=== PATIENT | female | born 1970 | race Caucasian/White ===

== ENCOUNTER → 2017-01-24 | Outpatient (CLI) | payer BC, OTHER | LOC: M SMT 13:47 | PROVIDERS: ATTEND Student in an Organized Health Care Education/Training Program | DX: R73.03 Prediabetes (principal) ==

== ENCOUNTER → 2017-08-09 | Outpatient (CLI) | payer OTHER, BC ==
[2017-08-09 19:05] LABS: BASO % 0.3 % (0.0-1.0); EOS # 0.1 K/mm3 (0.0-0.50); EOS % 0.9 % (0.0-3.0); LARGE UNSTAINED CELL # 0.1 K/mm3 (0.0-0.4); LARGE UNSTAINED CELL % 1.5 % (0.0-4.0); LYMPH # 0.9 K/mm3 (1.5-4.5); LYMPH % 13.2 % (24.0-44.0); MEAN CORPUSCULAR HEMOGLOBIN 31.7 pg (27.0-33.0); MEAN CORPUSCULAR HGB CONC 35.3 g/dl (32.0-36.5); MEAN CORPUSCULAR VOLUME 89.9 fl (80.0-96.0); MONO # 0.4 K/mm3 (0.0-0.8); NEUTROPHILS # 5.6 K/mm3 (1.8-7.7); NEUTROPHILS % 79.1 % (36.0-66.0); PLATELET COUNT, AUTOMATED 243 k/mm3 (150-450); RED CELL DISTRIBUTION WIDTH 12.4 % (11.5-14.5); WHITE BLOOD COUNT 7.1 K/mm3 (4.0-10.0)
[2017-08-09 20:23] LABS: ALBUMIN 4.5 GM/DL (3.2-5.2); ALBUMIN/GLOBULIN RATIO 1.32 (1.00-1.93); ALKALINE PHOSPHATASE 79 U/L (45-117); ALT/SGPT 53 U/L (12-78); ANION GAP 9 MEQ/L (8-16); AST/SGOT 31 U/L (15-37); BILIRUBIN,TOTAL 0.6 MG/DL (0.2-1.0); BLOOD UREA NITROGEN 14 MG/DL (7-18); CALCIUM LEVEL 9.4 MG/DL (8.5-10.1); CARBON DIOXIDE LEVEL 28 MEQ/L (21-32); CHLORIDE LEVEL 103 MEQ/L (98-107); CREATININE FOR GFR 0.84 MG/DL (0.55-1.02); GLOMERULAR FILTRATION RATE > 60.0 (>58); GLUCOSE, FASTING 90 MG/DL (70-105); POTASSIUM SERUM 3.8 MEQ/L (3.5-5.1); SODIUM LEVEL 140 MEQ/L (136-145); TOTAL PROTEIN 7.9 GM/DL (6.4-8.2)
[2017-08-12 00:06] LABS: Lyme Disease IgG/IgM Antibodie <0.91 ISR (0.00-0.90); Lyme Disease IgM Ab Quantitati <0.80 index (0.00-0.79)
== END ==
LOC: M SMT 13:36
PROVIDERS: ATTEND Student in an Organized Health Care Education/Training Program
DX: Z00.00 Encounter for general adult medical examination without abnormal findings (principal); R21 Rash and other nonspecific skin eruption

== ENCOUNTER → 2017-09-06 | Outpatient (CLI) | payer BC, OTHER ==
--- NOTE | 2017-09-06 14:04 | REP ---
DIGITAL DIAGNOSTIC BILATERAL MAMMOGRAPHY WITH CAD AND FOCUSED RIGHT BREAST SONOGRAPHY: HISTORY: Right breast lump. The lump is nearly up at the shoulder and could not be displayed on mammographic images. Comparison mammography is reviewed from September 05, 2016, May 05, 2014, and September 08, 2013. MAMMOGRAPHIC FINDINGS: Breast parenchyma is heterogeneously quite dense in a pattern which inhibits the sensitivity of mammography. This is unchanged. No neodensity is seen on either side. No spiculation, architectural distortion, or microcalcification is seen on either side. The mammogram is unchanged. Normal appearing lymph nodes are seen in each axilla. SONOGRAPHIC FINDINGS: Sonographic scanning is performed over the palpable lump in the left upper anterior chest above the breast. The patient gives a history of two stable previously noted lumps and a new third lump. This area is tender. Sonography again demonstrates two superficial stable subdermal cystic areas. These measure 4 and 2 mm in greatest diameter respectively. They are unchanged from the September 05, 2016 prior sonogram. They are also unchanged in appearance from sonography done in 2013. In the same region, today's sonography demonstrates a slightly hyperechoic area consistent with a lipoma 4 mm x 3 mm x 2 mm. This appears to be in the new area of palpable abnormality. No sonographically suspicious finding. IMPRESSION: BIRADS category 2 benign bilateral breast imaging. Clinical follow-up is recommended. This negative report should not dissuade one from biopsy of a palpable lump depending on its clinical characteristics. BI-RADS/ACR category 2 mammogram. Benign finding(s). Routine annual screening mammography (for women over age 40). This mammogram was interpreted with the aid of an FDA-approved computer-aided detection system. The patient states that she/he has not had a clinical breast exam in over a year. The patient letter being requested is M2. Signed by Nirmal Funez MD 09/06/2017 05:11 P
== END ==
LOC: M RAD 09:57
PROVIDERS: ATTEND Family Medicine
DX: N60.81 Other benign mammary dysplasias of right breast (principal)
CPT/HCPCS: 76642; G0204

== ENCOUNTER → 2017-12-26 | Outpatient (REF) | payer OTHER ==
[2017-12-26 15:59] LABS: APPEARANCE, URINE CLEAR (CLEAR); BACTERIA, URINE AUTO 1+ (NEGATIVE); BILIRUBIN, URINE AUTO NEGATIVE (NEGATIVE); BLOOD, URINE BLOOD NEGATIVE (NEGATIVE); COLOR, URINE STRAW (YELLOW); GLUCOSE, URINE (UA) AUTO NEGATIVE (NEGATIVE); KETONE, URINE AUTO NEGATIVE (NEGATIVE); LEUKOCYTE ESTERASE, URINE AUTO NEGATIVE (NEGATIVE); NITRITE, URINE AUTO NEGATIVE (NEGATIVE); PROTEIN, URINE AUTO NEGATIVE (NEGATIVE); RBC, URINE AUTO 0 /HPF (0-3); SPECIFIC GRAVITY URINE AUTO 1.004 (1.002-1.035); SQUAMOUS EPITHELIAL CELL UR AU 0 /HPF (0-6); UROBILINOGEN, URINE AUTO 0.2 mg/dL (0.0-2.0); WBC, URINE AUTO 0 /HPF (0-3)
== END ==
LOC: M SFHCPLAZ 15:39
DX: R63.1 Polydipsia (principal)

== ENCOUNTER → 2017-12-28 | Outpatient (CLI) | payer BC, OTHER ==
[2017-12-28 13:47] LABS: BASO % 0.3 % (0.0-1.0); EOS # 0.1 10^3/uL (0.0-0.50); EOS % 0.7 % (0.0-3.0); HEMATOCRIT 41.4 % (36.0-47.0); HEMOGLOBIN 13.7 g/dl (12.0-16.0); IMMATURE GRANULOCYTE % 0.4 % (0-0); LYMPH # 0.8 10^3/uL (1.5-4.5); LYMPH % 10.4 % (24.0-44.0); MEAN CORPUSCULAR HEMOGLOBIN 30.6 pg (27.0-33.0); MEAN CORPUSCULAR HGB CONC 33.1 g/dl (32.0-36.5); MEAN CORPUSCULAR VOLUME 92.6 fl (80.0-96.0); MONO # 0.4 10^3/uL (0.0-0.8); MONO % 5.7 % (0.0-5.0); NEUTROPHILS # 6.1 10^3/uL (1.8-7.7); NEUTROPHILS % 82.5 % (36.0-66.0); PLATELET COUNT, AUTOMATED 235 10^3/uL (150-450); RED BLOOD COUNT 4.47 10^6/uL (4.00-5.40); RED CELL DISTRIBUTION WIDTH 12.3 % (11.5-14.5); WHITE BLOOD COUNT 7.4 10^3/uL (4.0-10.0)
[2017-12-28 14:08] LABS: ERYTHROCYTE SEDIMENTATION RATE 20 mm/hr (0-20)
[2017-12-28 14:17] LABS: ANION GAP 7 MEQ/L (8-16); BLOOD UREA NITROGEN 14 MG/DL (7-18); C REACTIVE PROTEIN QUANTITATIV 0.83 MG/DL (0.00-0.30); CALCIUM LEVEL 8.8 MG/DL (8.5-10.1); CARBON DIOXIDE LEVEL 27 MEQ/L (21-32); CHLORIDE LEVEL 105 MEQ/L (98-107); CREATININE FOR GFR 0.73 MG/DL (0.55-1.30); GLOMERULAR FILTRATION RATE > 60.0 (>58); GLUCOSE, FASTING 101 MG/DL (70-100); POTASSIUM SERUM 4.5 MEQ/L (3.5-5.1); RHEUMATOID FACTOR QUANT < 10.0 IU/ML (0-15.0); SODIUM LEVEL 139 MEQ/L (136-145)
[2017-12-28 15:13] LABS: TOTAL 25(OH) VITAMIN D 26.2 NG/ML (30.0-100.0)
[2017-12-30 00:07] LABS: Lyme Disease IgG/IgM Antibodie <0.91 ISR (0.00-0.90); Lyme Disease IgM Ab Quantitati <0.80 index (0.00-0.79)
== END ==
LOC: M SMT 09:10
DX: R53.83 Other fatigue (principal); M79.1 Myalgia
CPT/HCPCS: 82306

== ENCOUNTER → 2018-01-08 | Outpatient (REF) | payer OTHER ==
[2018-01-10 14:17] LABS: HPV HYBRID CAPTURE II Negative (Negative)
== END ==
LOC: M SFHCWAGY 10:24
DX: Z12.4 Encounter for screening for malignant neoplasm of cervix (principal)
CPT/HCPCS: G0123

== ENCOUNTER → 2018-01-15 | Outpatient (CLI) | payer BC, OTHER ==
[2018-01-15 16:49] LABS: CARBOXYHEMOGLOBIN 1.8 % (0.0-1.5)
[2018-01-15 17:54] LABS: ANION GAP 9 MEQ/L (8-16); BLOOD UREA NITROGEN 17 MG/DL (7-18); CALCIUM LEVEL 8.7 MG/DL (8.5-10.1); CARBON DIOXIDE LEVEL 24 MEQ/L (21-32); CHLORIDE LEVEL 107 MEQ/L (98-107); CREATININE FOR GFR 0.85 MG/DL (0.55-1.30); GLOMERULAR FILTRATION RATE > 60.0 (>58); GLUCOSE, FASTING 208 MG/DL (70-100); POTASSIUM SERUM 4.3 MEQ/L (3.5-5.1); SODIUM LEVEL 140 MEQ/L (136-145); THYROID STIMULATING HORMONE 0.695 uIU/ML (0.358-3.740)
[2018-01-15 18:00] LABS: ESTIMATED AVERAGE GLUCOSE 103 MG/DL (60-110); HEMOGLOBIN A1c 5.2 %
== END ==
LOC: M SMT 14:13
DX: R53.83 Other fatigue (principal)
CPT/HCPCS: 84443

== ENCOUNTER → 2018-08-08 | Outpatient (REF) | payer OTHER ==
[2018-08-08 18:08] LABS: CHLAMYDIA DNA AMPLIFICATION NEGATIVE (NEGATIVE); GC DNA AMPLIFICATION NEGATIVE (NEGATIVE)
== END ==
LOC: M SFHCWAGY 15:48
DX: Z11.3 Encounter for screening for infections with a predominantly sexual mode of transmission (principal)

== ENCOUNTER → 2018-08-14 | Outpatient (REF) | payer OTHER ==
[2018-08-15 15:51] LABS: CHLAMYDIA DNA AMPLIFICATION NEGATIVE (NEGATIVE); GC DNA AMPLIFICATION NEGATIVE (NEGATIVE)
== END ==
LOC: M LAB REF 12:48
DX: N76.0 Acute vaginitis (principal)

== ENCOUNTER → 2019-01-08 | Outpatient (REF) | payer OTHER, BC | LOC: M SFHCPLAZ 11:19 | PROVIDERS: ATTEND Student in an Organized Health Care Education/Training Program | DX: R68.89 Other general symptoms and signs (principal) ==

== ENCOUNTER → 2019-02-19 | Outpatient (CLI) | payer BC ==
--- NOTE | 2019-02-19 13:51 | REPMRS ---
Patient History The patient states she had a clinical breast exam in January 2019. Family history of prostate cancer at age 50 or over in father, unknown cancer at age 50 or over in mother, unknown cancer at age 50 or over in maternal grandmother. 3D TOMOSYNTHESIS WAS PERFORMED. Digital Mammo Screening Bilat: February 19, 2019 - Exam #: [id number] Bilateral CC and MLO view(s) were taken. Technologist: Stephanie Doss, Technologist Prior study comparison: September 06, 2017, digital mammo diagnostic bilateral performed at [facility]. September 05, 2016, digital mammo diagnostic bilateral performed at [facility]. FINDINGS: The breast tissue is heterogeneously dense. This may lower the sensitivity of mammography. There has been no change in the appearance of the mammogram from the prior studies. There is a moderate amount of residual fibroglandular tissue which is fairly symmetric. There is no interval development of dominant mass, areas of architectural distortion, or clustered microcalcification typical of malignancy. Assessment: BI-RADS/ACR category 1 mammogram. Negative Mammogram. Recommendation Routine screening mammogram in 1 year (for women over age 40). This mammogram was interpreted with the aid of an FDA-approved computer-aided dectection system. Electronically Signed By: Tristin Harper MD 02/19/19 [id number]
== END ==
LOC: M RAD 11:30
PROVIDERS: ATTEND Nurse Practitioner Family
DX: Z12.31 Encounter for screening mammogram for malignant neoplasm of breast (principal); Z80.9 Family history of malignant neoplasm, unspecified

== ENCOUNTER → 2019-12-17 | Outpatient (CLI) | payer OTHER ==
[2019-12-17 11:02] LABS: HEMATOCRIT 43.9 % (36.0-47.0); HEMOGLOBIN 14.5 g/dl (12.0-15.5); MEAN CORPUSCULAR HEMOGLOBIN 29.9 pg (27.0-33.0); MEAN CORPUSCULAR VOLUME 90.5 fl (80.0-96.0); PLATELET COUNT, AUTOMATED 200 10^3/uL (150-450); RED BLOOD COUNT 4.85 10^6/uL (4.00-5.40); WHITE BLOOD COUNT 7.9 10^3/uL (4.0-10.0)
[2019-12-17 11:35] LABS: ERYTHROCYTE SEDIMENTATION RATE 9 mm/hr (0-20)
[2019-12-17 11:50] LABS: ALBUMIN 4.2 GM/DL (3.2-5.2); ALT/SGPT 33 U/L (12-78); BILIRUBIN,TOTAL 0.6 MG/DL (0.2-1.0); BLOOD UREA NITROGEN 13 MG/DL (7-18); C REACTIVE PROTEIN QUANTITATIV 0.37 MG/DL (0.00-0.30); CALCIUM LEVEL 9.2 MG/DL (8.5-10.1); CARBON DIOXIDE LEVEL 29 MEQ/L (21-32); CHLORIDE LEVEL 104 MEQ/L (98-107); CHOLESTEROL LEVEL 204 MG/DL (<200); CHOLESTEROL RISK RATIO 3.923 (<5); CREATININE FOR GFR 0.79 MG/DL (0.55-1.30); GLOMERULAR FILTRATION RATE > 60.0 (>58); GLUCOSE, FASTING 97 MG/DL (70-100); HDL CHOLESTEROL 52 MG/DL (>40); LDL CHOLESTEROL 111 MG/DL (<100); NON-HDL-C 152 MG/DL; POTASSIUM SERUM 4.5 MEQ/L (3.5-5.1); SODIUM LEVEL 141 MEQ/L (136-145); TOTAL PROTEIN 7.6 GM/DL (6.4-8.2); TRIGLYCERIDES LEVEL 203 MG/DL (<150)
== END ==
LOC: M PLALAB 08:07
PROVIDERS: ATTEND Family Medicine
DX: Z00.00 Encounter for general adult medical examination without abnormal findings (principal); Z13.1 Encounter for screening for diabetes mellitus; Z13.220 Encounter for screening for lipoid disorders; M25.511 Pain in right shoulder; M25.512 Pain in left shoulder

== ENCOUNTER → 2020-02-19 | Outpatient (REF) | payer OTHER | LOC: M LAB REF 18:56 | PROVIDERS: ATTEND Physician Assistant | DX: N39.0 Urinary tract infection, site not specified (principal) ==

== ENCOUNTER → 2020-04-05 | Outpatient (CLI) | payer OTHER ==
[~2020-04-05] MED LIST: ADV250INH INH; ALPR0.5T3 PO; CETI10CH PO; DITR1TAB PO; HYDR-3363 PO; PENT10CA PO; PHEN-594 PO; REST0.05 OU; SENN8.6T58 PO; SING10TA32 PO; VENTAER INH
== END ==
LOC: M LABSMTC 10:08
PROVIDERS: ATTEND Anesthesiology
DX: Z01.818 Encounter for other preprocedural examination (principal); Z11.59 Encounter for screening for other viral diseases
CPT/HCPCS: C9803; U0002

== ENCOUNTER 2020-04-07 09:35 | Day surgery (SDC) | payer BC ==
[~2020-04-07] VITALS: Ht 160 cm; Wt 70.3 kg
[~2020-04-07 09:35] MED LIST changes: +NS 1,000 ML IV ONE; -PHEN-594 PO; +PHEN1TAB74 PO
[2020-04-07] MEDS ORDERED: propofoL 200 MG/20 ML VIAL As Ordered ONE ×2 (10:39→10:42)
[2020-04-07] MEDS ORDERED: LIDOCAINE 2% 100MG/5ML SDV (FOR ANES.) As Ordered ONE (10:39)
--- NOTE | 2020-04-07 10:59 | ROOR ---
Patient Name: Ayah Mora Procedure Date: 04/07/2020 10:39 AM Date of : 1970 Age: 50 Room: [facility] Gender: Female Note Status: Finalized Procedure: Total Colonoscopy to Cecum Indications: Screening for colorectal malignant neoplasm Providers: John Starks MD Referring MD: Salty Looney Do Requesting Provider: Medicines: Monitored Anesthesia Care Complications: No immediate complications. Procedure: Pre-Anesthesia Assessment: - The heart rate, respiratory rate, oxygen saturations, blood pressure, adequacy of pulmonary ventilation, and response to care were monitored throughout the procedure. The Colonoscope was introduced through the anus and advanced to the cecum, identified by appendiceal orifice and ileocecal valve. The colonoscopy was performed without difficulty. The patient tolerated the procedure well. The quality of the bowel preparation was excellent. Findings: The perianal and digital rectal examinations were normal. Non-bleeding internal hemorrhoids were found during retroflexion. The hemorrhoids were small and Grade I (internal hemorrhoids that do not prolapse). No other significant abnormalities were identified in a careful examination of the remainder of the colon. The exam was otherwise without abnormality on direct and retroflexion views. Impression: - Non-bleeding internal hemorrhoids. - The examination was otherwise normal on direct and retroflexion views. - No specimens collected. - The exam was otherwise normal to the cecum. Recommendation: - Patient has a contact number available for emergencies. The signs and symptoms of potential delayed complications were discussed with the patient. Return to normal activities tomorrow. Written discharge instructions were provided to the patient. - High fiber diet. - Discharge patient to home. - Continue present medications. - Repeat colonoscopy in 10 years for screening purposes. - Return to referring physician. - The findings and recommendations were discussed with the patient's family. John Starks MD John Starks MD 04/07/2020 10:58:45 AM Electronically signed by John Starks MD Number of Addenda: 0 Note Initiated On: 04/07/2020 10:39 AM Estimated Blood Loss: Estimated blood loss: none.
[2020-04-07 11:15] VITALS: BP 142/87
== END 2020-04-07 11:32 | disposition home or self-care (01) ==
LOC: M OPP 09:35
PROVIDERS: ATTEND Internal Medicine Gastroenterology
DX: Z12.11 Encounter for screening for malignant neoplasm of colon (principal); K64.0 First degree hemorrhoids; K21.9 Gastro-esophageal reflux disease without esophagitis; Z79.899 Other long term (current) drug therapy

== ENCOUNTER → 2020-06-08 | Outpatient (REF) | payer BC ==
[~2020-06-08] MED LIST changes: -NS 1,000 ML IV ONE; +PHEN-594 PO; -PHEN1TAB74 PO
== END ==
LOC: M SFHCPLAZ 15:33
PROVIDERS: ATTEND Family Medicine
DX: Z53.9 Procedure and treatment not carried out, unspecified reason (principal); G58.7 Mononeuritis multiplex

== ENCOUNTER → 2020-06-10 | Outpatient (CLI) | payer BC ==
--- NOTE | 2020-06-10 16:49 | REPPI ---
LUMBOSACRAL SPINE: REASON: Back pain with "feet tickling." Seven views were obtained with flexion and extension bending views. FINDINGS: Five views of the lumbosacral spine show no acute fracture, dislocation, or subluxation. The intervertebral disc spaces are symmetric and well maintained. There is no spondylolisthesis. The pedicles are intact bilaterally, and there is no destructive osseous lesions. IMPRESSION: Unremarkable lumbosacral spine series. No abnormality noted during flexion and extension bending. Electronically Signed by Rupesh Traore DO 06/10/2020 05:02 P
== END ==
LOC: M PLAIMG 13:35
PROVIDERS: ATTEND Student in an Organized Health Care Education/Training Program
DX: G58.7 Mononeuritis multiplex (principal)

== ENCOUNTER → 2020-06-10 | Outpatient (REF) | payer BC ==
[2020-06-10 20:24] LABS: HEMOGLOBIN A1c 5.6 %
[2020-06-14 15:08] LABS: ANTINUCLEAR ANTIBODIES DIRECT Negative (Negative); LEAD BLOOD ADULT 1 ug/dL (0-4); Lyme Disease IgG/IgM Antibodie <0.91 ISR (0.00-0.90); Lyme Disease IgM Ab Quantitati <0.80 index (0.00-0.79)
== END ==
LOC: M SFHCPLAZ 13:36
PROVIDERS: ATTEND Family Medicine
DX: M79.2 Neuralgia and neuritis, unspecified (principal)

== ENCOUNTER → 2020-08-28 | Outpatient (CLI) | payer BC ==
--- NOTE | 2020-08-31 12:18 | REPVR ---
PROCEDURE INFORMATION: Exam: XR Chest, 2 Views Exam date and time: 08/28/2020 3:00 PM Age: 50 years old Clinical indication: Chest pain; Additional info: Acute bronchitis TECHNIQUE: Imaging protocol: XR of the chest Views: 2 views. COMPARISON: No relevant prior studies available. FINDINGS: Lungs: Emphysematous change and interstitial prominence. No focal infiltrate. Pleural space: No pleural effusion. Heart/Mediastinum: No cardiomegaly. Bones/joints: Pectus excavatum deformity of the anterior chest wall. Mild compression deformities and degenerative change in the thoracic spine. IMPRESSION: Emphysematous change and interstitial prominence. Electronically signed by: Lalit Alcantar On 08/29/2020 08:57:56 AM
== END ==
LOC: M WUC 14:37
PROVIDERS: ATTEND Physician Assistant
DX: J20.9 Acute bronchitis, unspecified (principal); J43.9 Emphysema, unspecified; M51.34 Other intervertebral disc degeneration, thoracic region

== ENCOUNTER → 2020-09-06 | Outpatient (REF) | payer BC | LOC: M SFHCPLAZ 16:46 | PROVIDERS: ATTEND Family Medicine | DX: Z20.828 Contact with and (suspected) exposure to other viral communicable diseases (principal) ==

== ENCOUNTER → 2020-10-18 | Outpatient (CLI) | payer SELFPAY | LOC: M LABSMTC 11:11 | PROVIDERS: ATTEND Pediatrics | DX: Z20.828 Contact with and (suspected) exposure to other viral communicable diseases (principal) ==

== ENCOUNTER → 2021-03-10 | Outpatient (CLI) | payer OTHER ==
[~2021-03-10] MED LIST changes: -PHEN-594 PO; +PHEN1TAB74 PO
--- NOTE | 2021-03-11 06:33 | REPPI ---
INDICATION: SEPSIS,UNSPECIFIED ORGANISM COMPARISON: 08/28/2020 TECHNIQUE: PA and lateral. FINDINGS: The mediastinum and cardiac silhouette are normal. Lateral view best demonstrates scattered linear lower lobe atelectasis. No effusion. No pneumothorax. Skeletal structures intact. IMPRESSION: Lateral view best demonstrates scattered linear lower lobe atelectasis. <Electronically signed by Desean Ann > 03/11/21 0629
== END ==
LOC: M PLAIMG 13:44
PROVIDERS: ATTEND Physician Assistant
DX: J98.11 Atelectasis (principal); A41.9 Sepsis, unspecified organism

== ENCOUNTER → 2021-04-12 | Outpatient (CLI) | payer OTHER ==
--- NOTE | 2021-04-13 04:53 | REP ---
INDICATION: ASTHMA COMPARISON: No prior chest CT for comparison. TECHNIQUE: Axial noncontrast images from the thoracic inlet to the upper abdomen with coronal and sagittal reformations. This CT examination was performed using the following dose reduction techniques: Automated exposure control, adjustment of mA and/or kv according to the patient's size, and use of iterative reconstruction technique. FINDINGS: There is a 1 cm soft tissue nodule in the lingula (image 64). Few scattered small 2-3 mm noncalcified nodules are also identified as well as very subtle small patchy areas of airspace disease. Bibasilar fibroatelectatic changes are also identified and there is a somewhat nodular component to the linear changes in the right lower lobe (image 75). Tracheobronchial tree is patent. No effusion. No pneumothorax. No obvious significant adenopathy. Mediastinum demonstrates normal thoracic aorta, pulmonary vasculature, and heart/pericardium. Limited upper abdomen demonstrates normal bilateral adrenal glands. Surrounding musculoskeletal structures without acute osseous abnormality. Evidence for prior mammoplasty. IMPRESSION: Abnormal findings as described above including 1 cm soft tissue nodule in the lingula and somewhat nodular focus in an area of linear scarring at the right base. PET-CT and/or tissue sampling should be considered for further investigation. <Electronically signed by Desean Ann > 04/13/21 1134
== END ==
LOC: M RAD 14:15
PROVIDERS: ATTEND Nurse Practitioner Family
DX: J45.40 Moderate persistent asthma, uncomplicated (principal); R91.1 Solitary pulmonary nodule

== ENCOUNTER → 2021-05-31 | Outpatient (CLI) | payer OTHER ==
--- NOTE | 2021-06-01 08:23 | REP ---
INDICATION: DIAGNOSING LUNG NODULE R91.1. Solitary pulmonary nodule. This knee a period cough. COMPARISON: Comparison chest CT study April 12, 2021.. TECHNIQUE: Forty-five minutes following the intravenous injection of a 8.77 mCi dose of F-18 FDG, three-dimensional PET scintigraphy is acquired from the skull base to the proximal thighs. Triplanar noncontrast CT scanning is acquired through the same anatomic range for attenuation correction, and image registration with scan parameters optimized to minimize radiation exposure to the patient. PET scintigraphy and CT datasets were fused and displayed on a workstation with multiplanar and projection display capability. FINDINGS: The head and neck soft tissues are unremarkable. Bilateral breast augmentation implants are noted. No abnormal hypermetabolic uptake is seen within the abdomen or pelvis. No abnormal skeletal uptake is seen. In the chest, today's CT images demonstrate new zones of bilateral discoid atelectasis in the right lower lobe, left lower lobe, right middle lobe. These were not apparent on the chest CT study from April 12, 2021. There is minimal uptake associated with the atelectatic changes. Maximum SUV value in the discoid atelectasis in the right middle lobe is 3.74. Maximum SUV value in the left lower lobe atelectatic changes in the posterior lung gutter is 4.06. The other zones of platelike atelectasis show less avid uptake, less than 2.0. The lingular nodule seen on recent CT study is again noted. This measured 1 cm in greatest diameter. There is no discernible FDG accumulation within this nodule. Maximum standard uptake value is 0.81. Similarly, the oval-shaped nodule in the right lower lobe which measures 1.2 cm in greatest diameter also shows no evidence of hypermetabolic uptake. Maximum. Standard uptake value in this nodule is 1.96. There is a tiny subcentimeter nodule visible in the left upper lobe unchanged from April 12, 2021 CT study. No discernible FDG accumulation is seen within this. There is no hilar or mediastinal hypermetabolic lars uptake. No adrenal abnormality is seen. IMPRESSION: The 3 noncalcified pulmonary nodules identified in the left upper lobe, lingula, and right lower lobe on recent CT study are non hypermetabolic. Follow-up is advised. Today's CT study demonstrates new bilateral zones of platelike atelectasis in the right middle lobe, left lower lobe, and right lower lobe which show mildly increased uptake consistent with inflammatory change. Otherwise negative PET scintigraphy. <Electronically signed by Beto Funez > 06/01/21 0809
== END ==
LOC: M PLARAD 11:02
PROVIDERS: ATTEND Internal Medicine Pulmonary Disease
DX: R91.1 Solitary pulmonary nodule (principal); R91.8 Other nonspecific abnormal finding of lung field; J98.11 Atelectasis; R06.00 Dyspnea, unspecified; R05 Cough
CPT/HCPCS: 78815; A9552

== ENCOUNTER → 2021-06-07 | Outpatient (REF) | payer OTHER ==
[2021-06-07 13:41] LABS: BASO % 0.4 % (0.0-1.0); EOS # 0.1 10^3/uL (0.0-0.5); EOS % 0.7 % (0.0-3.0); HEMATOCRIT 43.7 % (36.0-47.0); HEMOGLOBIN 14.2 g/dl (12.0-15.5); LYMPH # 0.9 10^3/uL (1.5-5.0); LYMPH % 13.8 % (24.0-44.0); MEAN CORPUSCULAR HEMOGLOBIN 29.3 pg (27.0-33.0); MEAN CORPUSCULAR HGB CONC 32.5 g/dl (32.0-36.5); MEAN CORPUSCULAR VOLUME 90.1 fl (80.0-96.0); MONO # 0.4 10^3/uL (0.0-0.8); MONO % 6.5 % (2.0-8.0); NEUTROPHILS # 5.3 10^3/uL (1.5-8.5); NEUTROPHILS % 78.2 % (36.0-66.0); PLATELET COUNT, AUTOMATED 229 10^3/uL (150-450); RED BLOOD COUNT 4.85 10^6/uL (4.00-5.40); WHITE BLOOD COUNT 6.7 10^3/uL (4.0-10.0)
[2021-06-10 06:08] LABS: D001-IgE D pteronyssinus 5.25 kU/L (Class IV); E001-IgE Cat Epith/Dander 2.22 kU/L (Class III); E005-IgE Dog Dander 1.79 kU/L (Class III); G002-IgE Bermuda Grass 0.42 kU/L (Class I); G008-IgE Kentucky Bluegrass 3.49 kU/L (Class III); M001-IgE Penicillium chrysogen 0.11 kU/L (Class 0/I); M002 IgE Cladosporium herbaru < 0.10 kU/L (Class 0); M003 IgE Aspergillus fumigatu 1.02 kU/L (Class II); M006-IgE Alternaria alternata 0.76 kU/L (Class II); T001-IgE Maple/Box Elder 0.12 kU/L (Class 0/I); T003-IgE Common Silver Birch < 0.10 kU/L (Class 0); T006-IgE Cedar, Mountain < 0.10 kU/L (Class 0); T007-IgE Oak, White < 0.10 kU/L (Class 0); T008-IgE Elm, American < 0.10 kU/L (Class 0); T015-IgE Ash, White < 0.10 kU/L (Class 0); T041-IgE Hickory, White < 0.10 kU/L (Class 0); T070-IgE White Mulberry < 0.10 kU/L (Class 0); W001-IgE Ragweed, Short 0.54 kU/L (Class I); W009-IgE Plantain, English < 0.10 kU/L (Class 0); W014-IgE Pigweed, Rough < 0.10 kU/L (Class 0); W018-IgE Sheep Sorrel < 0.10 kU/L (Class 0)
== END ==
LOC: M LAB REF 12:55
PROVIDERS: ATTEND Nurse Practitioner Family
DX: J45.40 Moderate persistent asthma, uncomplicated (principal)

== ENCOUNTER 2021-07-27 04:13 | Inpatient (IN) | payer OTHER ==
[~2021-07-27] VITALS: Ht 160 cm; Wt 83.0 kg
[2021-07-27 05:23] LABS: BASO % 0.2 % (0.0-1.0); EOS % 0.1 % (0.0-3.0); HEMATOCRIT 38.7 % (36.0-47.0); HEMOGLOBIN 13.2 g/dl (12.0-15.5); LYMPH # 0.9 10^3/uL (1.5-5.0); LYMPH % 4.8 % (24.0-44.0); MEAN CORPUSCULAR HEMOGLOBIN 29.9 pg (27.0-33.0); MEAN CORPUSCULAR HGB CONC 34.1 g/dl (32.0-36.5); MEAN CORPUSCULAR VOLUME 87.8 fl (80.0-96.0); MONO # 0.9 10^3/uL (0.0-0.8); MONO % 4.7 % (2.0-8.0); NEUTROPHILS # 16.7 10^3/uL (1.5-8.5); NEUTROPHILS % 89.7 % (36.0-66.0); PLATELET COUNT, AUTOMATED 208 10^3/uL (150-450); RED BLOOD COUNT 4.41 10^6/uL (4.00-5.40); WHITE BLOOD COUNT 18.6 10^3/uL (4.0-10.0)
[2021-07-27] MEDS: COMBIVENT RESPIMAT 100-20MCG INHALER 4GM INH SCH ×3 (05:28→06:14)
[2021-07-27 05:58] LABS: ALBUMIN 3.1 GM/DL (3.2-5.2); ALT/SGPT 23 U/L (12-78); BILIRUBIN,DIRECT 0.1 MG/DL (0.0-0.2); BILIRUBIN,TOTAL 0.6 MG/DL (0.2-1.0); BLOOD UREA NITROGEN 11 MG/DL (7-18); CALCIUM LEVEL 8.3 MG/DL (8.5-10.1); CARBON DIOXIDE LEVEL 18 MEQ/L (21-32); CHLORIDE LEVEL 109 MEQ/L (98-107); CK-MB VALUE MASS 1.3 NG/ML (<3.6); CPK CREATINE PHOSPHOKINASE 41 U/L (26-192); CREATININE FOR GFR 0.95 MG/DL (0.55-1.30); GLOMERULAR FILTRATION RATE > 60.0 (>51); GLUCOSE, FASTING 111 MG/DL (70-100); MB/CK RELATIVE INDEX 3.17 (< OR =4); NT-PRO BNP 92 PG/ML (<125); POTASSIUM SERUM 3.4 MEQ/L (3.5-5.1); SODIUM LEVEL 141 MEQ/L (136-145); TOTAL PROTEIN 6.2 GM/DL (6.4-8.2); TROPONIN I < 0.02 NG/ML (< 0.10)
--- NOTE | 2021-07-27 06:12 | REPVR ---
PROCEDURE INFORMATION: Exam: XR Chest Exam date and time: 07/27/2021 5:31 AM Age: 51 years old Clinical indication: Cough and dyspnea; Additional info: Dyspnea/cough TECHNIQUE: Imaging protocol: XR of the chest. Views: 1 view. COMPARISON: CT Chest without contrast 04/12/2021 2:25 PM FINDINGS: Lungs: Mild bilateral perihilar and bibasilar reticulonodular opacities. Pleural spaces: Unremarkable. No pleural effusion. No pneumothorax. Heart/Mediastinum: Unremarkable. No cardiomegaly. Bones/joints: Unremarkable. IMPRESSION: Mild bilateral perihilar and bibasilar reticulonodular opacities. Electronically signed by: Anjel Sims On 07/27/2021 06:12:13 AM
[2021-07-27] MEDS ORDERED: cefTRIAXone SOD 2 GM in D5W MINI-BAG PLUS 50 ML IV ONE (06:20)
[2021-07-27] MEDS ORDERED: NS 2,180 ML in IV 1 EA IV ONE (06:20)
[2021-07-27] MEDS ORDERED: ISOVUE-370 76% 100ML VIAL As Ordered ONE (06:27)
[2021-07-27] MEDS ORDERED: ALBUTEROL SULFATE 2.5 MG/0.5 ML INH NEB SOLN INH ONE (06:35)
[2021-07-27] MEDS: MAG SULF 1GM/100ML (MAG RUN) 1 GM in IV 1 EA IV SCH ×2 (07:08→08:16)
--- NOTE | 2021-07-27 07:11 | REPVR ---
PROCEDURE INFORMATION: Exam: CTA Chest With Contrast Exam date and time: 07/27/2021 6:16 AM Age: 51 years old Clinical indication: Shortness of breath; Additional info: SOB TECHNIQUE: Imaging protocol: Computed tomographic angiography of the chest with contrast. 3D rendering (Not supervised by radiologist): MIP and/or 3D reconstructed images were created by the technologist. Radiation optimization: All CT scans at this facility use at least one of these dose optimization techniques: automated exposure control; mA and/or kV adjustment per patient size (includes targeted exams where dose is matched to clinical indication); or iterative reconstruction. Contrast material: ISO; Contrast volume: 75 ml; Contrast route: INTRAVENOUS (IV); COMPARISON: PET/CT Skull/mid thigh 05/31/2021 12:29 PM FINDINGS: Pulmonary arteries: Motion degradation limits evaluation distal segmental and subsegmental pulmonary arterial branches. No central pulmonary emboli are appreciated. Aorta: Unremarkable. No aortic aneurysm. No aortic dissection. Lungs: Right lower lobe airspace and ground-glass opacities. Stable 9 mm pulmonary nodule in the lingula. Linear atelectasis or scarring bilateral lower lobes. Mild nonspecific ground-glass opacities in the bilateral upper lobes mild right hilar adenopathy. Pleural spaces: Unremarkable. No pneumothorax. No pleural effusion. Heart: Unremarkable. No cardiomegaly. No pericardial effusion. Lymph nodes: Unremarkable. No enlarged lymph nodes. Bones/joints: Support graft chronic appearing anterior wedge compression deformities of several midthoracic vertebra. Soft tissues: Bilateral saline breast implants. IMPRESSION: Motion degradation limits evaluation distal segmental and subsegmental pulmonary arterial branches. No central pulmonary emboli are appreciated. Right lower lobe pneumonia. Electronically signed by: Anjel Sims On 07/27/2021 07:11:20 AM
[2021-07-27] MEDS ORDERED: CETI10CA2 PO (07:34)
[2021-07-27] MEDS ORDERED: FLUT11IN INH (07:35)
[2021-07-27] MEDS ORDERED: BUDE10.7 INH (07:35)
[2021-07-27] MEDS ORDERED: ALBU83IN INH (07:35)
[2021-07-27] MEDS ORDERED: PRED10TA2 PO (07:35)
[2021-07-27] MEDS ORDERED: BENZ-18 PO (07:40)
[2021-07-27] MEDS ORDERED: AMIT25TA17 PO (07:40)
[2021-07-27] MEDS ORDERED: EPIN0.3I11 IM (07:40)
[2021-07-27] MEDS ORDERED: IMIQ5CRE TOP (07:40)
[2021-07-27] MEDS ORDERED: HOME MED LIST COMPLETE! XX SCH (07:45)
[2021-07-27] MEDS: SYMBICORT 160/4.5MCG INHALER 6GM INH SCH ×2 (08:00→20:00)
[2021-07-27] MEDS: FLUTICASONE HFA 110 MCG 12 GM INHALER (FLOVENT) INH SCH ×2 (08:00→20:25)
[2021-07-27] MEDS ORDERED: IPRATROPIUM 0.5MG/ALBUTEROL 2.5MG INH SOL UD 3ML (DUONEB) NEB PRN (10:00)
[2021-07-27] MEDS ORDERED: BENZONATATE 100MG CAPSULE PO PRN (10:00)
[2021-07-27] MEDS ORDERED: ALPRAZolam 0.5 MG TAB PO PRN (10:00)
[2021-07-27] MEDS ORDERED: ALBUTEROL 90 MCG/ACT 8GM HFA INHALER INH PRN (10:00)
[2021-07-27] MEDS ORDERED: oxyBUTYnin *DITROPAN XL* 5 MG TABCR PO PRN (10:00)
[2021-07-27] MEDS ORDERED: ALBUTEROL SULFATE 2.5 MG/0.5 ML INH NEB SOLN INH PRN (10:00)
[2021-07-27] MEDS ORDERED: methylPREDNISolone 125MG 2ML VIAL IV ONE (11:00)
[2021-07-27] MEDS ORDERED: MOM 30ML SUSPENSION UDC PO PRN (11:30)
[2021-07-27] MEDS ORDERED: MAALOX 30 ML SUSP *UDC PO PRN (11:30)
[2021-07-27] MEDS: PANTOPRAZOLE 40MG TAB (PROTONIX) PO SCH (11:53)
[2021-07-27] MEDS: AZITHROMYCIN INJ 500 MG, VIAL MATE ADAPTER 1 EACH in NS 250 ML IV SCH (11:53)
--- NOTE | 2021-07-27 15:27 | HPEPDOC ---
[facility] Medical History & Physical Date of Admission Jul 27, 2021 Date of Service: Jul 27, 2021 History and Physical CHIEF COMPLAINT: HISTORY OF PRESENT ILLNESS: 51-year-old pleasant female with a past medical history of asthma, generalized anxiety irritable bowel syndrome adjustment disorder GERD, sciatica presented to the ER complaining of approximately 7-day history of wheezing and shortness of breath. She was last seen by her dealmaker approximately week ago was started on a prednisone taper for wheezing. She states she is typically compliant with her inhalers. She also states that she has been having subjective fevers and chills at home with a maximum temperature of 102 degrees. On arrival patient was tachypneic with hypoxia and ABG showing respiratory alkalosis with a pH of 7.6. Patient was placed on nasal cannula 2 L to maintain saturations above 95%. Patient was found to have a leukocytosis of 18. Lactic acid was elevated to 6.2. X-ray did not indicate obvious consolidation however CT angiogram of the chest was performed. CT angio did not reveal pulmonary embolism but did reveal consolid ation in the R lower lobe. Blood cultures were drawn. Patient was given magnesium with duo nebulizer treatments. Patient will be admitted to hospitalist service for the management of acute asthma exacerbation secondary to community-acquired pneumonia. PAST MEDICAL HISTORY: MAJOR DEPRESSION GENERALIZED ANXIETY INTERSTITIAL CYSTITIS IBS ASTHMA, HX OF MODERATE PERSISTENT PREDIABETIC BREAST LUMP IN UPPER OUTER QUADRANT INSOMNIA ADJUSTMENT DISORDER REFLUX ESOPHAGITIS INTERNAL/EXTERNAL HEMORRHOIDS ALLERGIC RHINITIS SCIATICA PAST SURGICAL HISTORY: HYSTERECTOMY, PARTIAL 2008 LUMP IN LEFT GROIN REMOVED BX. RIGHT ARM- DR. MAURER 04/19/12 BREAST AUGMENTATION 01/21/18 SOCIAL HISTORY: Patient denies smoking Patient denies etoh use Patient denies illicit drug use FAMILY HISTORY: Obtained from PCP records FATHER: 87 YRS, DM, COPD, HTN, AGE RELATED DEMENTIA 07/2016 PROSTATE CANCER AT 70 RECURRENCE MOTHER: 78 YRS, LIVER CANCER,AT 78 SMOKER SIBLINGS: ALIVE, BOTH SISTERS WITH DM, HTN. ONE BROTHER WITH HTN. ALL WITH DEPRESSION/ANXIETY SON(S): ALIVE 26 YRS, DEPRESSION, ANXIETY DAUGHTER(S): ALIVE 23 YRS, BOTH DAUGHTERS WITH DEPRESSION/ANXIETY 2 BROTHER(S) , 2 SISTER(S) . 1 SON(S) , 2 DAUGHTER(S) - HEALTHY. ALLERGIES: Please see below. REVIEW OF SYSTEMS: 10 point review of systems conducted, relevant findings are noted in HPI HOME MEDICATIONS: Please see below. PHYSICAL EXAMINATION: VITAL SIGNS: please see below General: NAD, comfortable HEENT: PERRLA, EOMI, sclerae clear Neck: supple, normal ROM, no JVD Respiratory: Reduced inspiratory effort her wheezing has resolved. No crackles. Rhonchi noted in the left lung base. CVS: Tachycardic, regular, normal S1, S2, no murmurs Abdo: soft, no masses, no hepatosplenomegaly, BS+, no rebound tenderness Extremities: no edema, pulses 2+ MSK: no joint deformities, normal ROM Neuro: no focal neuro deficits, moving all 4 extremities, CN2-12 intact. Strength 5/5 in all 4 extremities. No nystagmus. Psych: calm, cooperative, AAO x 3 LABORATORY DATA: See below. IMAGING: CT angiogram on 07/27/2021: Motion degradation limits evaluation distal segmental and subsegmental pulmonary arterial branches. No central pulmonary emboli are appreciated. Right lower lobe pneumonia. CXR on 07/27/21: IMPRESSION: Mild bilateral perihilar and bibasilar reticulonodular opacities MICROBIOLOGY: Please see below. ASSESSMENT: 51-year-old pleasant female with a past medical history of asthma, generalized anxiety irritable bowel syndrome adjustment disorder GERD, sciatica presented to the ER complaining of approximately 7-day history of wheezing and shortness of breath. She was last seen by her dealmaker approximately week ago was started on a prednisone taper for wheezing. Patient was diagnosed with acute asthma exacerbation secondary to right lower lobe pneumonia in the ER patient presented with hypoxia and respiratory alkalosis. As well as lactic acidosis. Patient is admitted to hospitalist service for the treatment of sepsis and acute asthma exacerbation and community-acquired right lower lobe pneumonia. She is started on nebulizer treatments IV steroids as well as ceftriaxone and azithromycin IV. . PLAN: Sepsis 2/2 CAP: patient meets sepsis criteria based on fever with leukocytosis, tachypnea, tachycardia and elevated lactic acid. I suspect leukocytosis likely 2/2 chronic steroid therapy. Start IV ceftriaxone and azithromycin for CAP. Check blood cx. Check sputum cx. Repeat LA. Acute asthma exacerbation 2/2 CAP: hypoxic to 80s. Improved with NC 2l LPM. ABG showing respiratory alkalosis. pH 7.617. s/p nebs, mag in ER. Admit to PCU. Give solumedrol 125 mg IV. C/w solumedrol 80 mg IV q8h. Continue with duonebs. Continue home inhalers. Start IV ceftriaxone and IV azithromycin for CAP. Check blood cultures x 2. Tylenol for fevers prn. Check sputum cultures. Legionella urine ag. Strep pneumo ag urine. BEAU/depression/adjustment disorder:c/w amitriptyline. Bladder spasms: c/w oxybutinin. DVT ppx: lovenox Dispo: pending clinical improvement. Vital Signs Vital Signs Date Time Temp Pulse Resp B/P (MAP) Pulse Ox O2 Delivery O2 Flow Rate FiO2 07/27/21 14:00 95 117/71 (86) 96 07/27/21 12:00 Room Air 07/27/21 08:15 1.0 07/27/21 06:45 21 07/27/21 05:15 100.8 Laboratory Data Labs 24H Laboratory Tests 2 07/27/21 05:11: Immature Granulocyte % (Auto) 0.5, Neutrophils (%) (Auto) 89.7H, Lymphocytes (%) (Auto) 4.8L, Monocytes (%) (Auto) 4.7, Eosinophils (%) (Auto) 0.1, Basophils (%) (Auto) 0.2, Neutrophils # (Auto) 16.7H, Lymphocytes # (Auto) 0.9L, Monocytes # (Auto) 0.9H, Eosinophils # (Auto) 0.0, Basophils # (Auto) 0.0, Nucleated Red Blood Cells % (auto) 0.0, Anion Gap 14, Glomerular Filtration Rate > 60.0, Lactic Acid Level 6.2*H, Calcium Level 8.3L, Total Bilirubin 0.6, Direct Bilirubin 0.1, Aspartate Amino Transf (AST/SGOT) 7, Alanine Aminotransferase (ALT/SGPT) 23, Alkaline Phosphatase 73, Total Creatine Kinase 41, Creatine Kinase MB 1.3, Creatine Kinase MB Relative Index 3.17, Troponin I < 0.02, HA-Fsl-W-Type Natriuretic Peptide 92, Total Protein 6.2L, Albumin 3.1L, Albumin/Globulin Ratio 1.0L, Thyroid Stimulating Hormone (TSH) 3.610 07/27/21 07:15: POC pH (Misc Panel) 7.617*H, POC Base Excess (Misc Panel) -3.0L, POC Saturated Percent O2 (Misc) 99H, POC pO2 (Misc Panel) 102.0, POC pCO2 (Misc Panel) 18.2*L, POC HCO3 (Misc Panel) 18.6L, POC Total CO2 (Misc Panel) 19.0L 07/27/21 12:51: Lactic Acid Followup at 4 Hours 2.6*H CBC/BMP Laboratory Tests 07/27/21 05:11 Microbiology Microbiology 07/27/21 Blood Culture, Received Pending 07/27/21 Blood Culture, Received Pending 07/27/21 Respiratory Virus Panel (PCR) (DEBBIE) - Final, Complete Home Medications Scheduled Amitriptyline HCl (Amitriptyline HCl) 25 Mg Tablet, 25 MG PO QHS Amoxicillin/Potassium Clav (Augmentin 875-125 Tablet) 1 Each Tablet, 1 TAB PO BID Budesonide/Glycopyr/Formoterol (Breztri Aerosphere Inhaler) 160 Mcg-9 Mcg-4.8 Mcg/Actuation Hfa.aer.ad, 2 PUFFS INH BID Cetirizine HCl (ZyrTEC) 10 Mg Capsule, 10 MG PO DAILY Cyclosporine (Restasis) 0.05% Droperette, 1 DROP OU BID Doxycycline Monohydrate (Doxycycline) 100 Mg Capsule, 1 CAP PO BID Fluconazole (Diflucan) 150 Mg Tablet, 1 TAB PO ONCE for yeast infection Fluticasone Propionate (Flovent Hfa) 110 Mcg/Act Aer.w.adap, 2 PUFFS INH BID Hydroxyzine HCl (Hydroxyzine HCl) 25 Mg Tablet, 50 MG PO QHS Imiquimod (Imiquimod) 1 Each Cream.pack, 1 APLCT TOP QHS APPLIES TO RIGHT RING FINGER Montelukast Sodium (Singulair) 10 Mg Tablet, 10 MG PO QHS Pantoprazole Sodium (Pantoprazole Sodium) 40 Mg Tablet.dr, 40 MG PO DAILY Prednisone (Prednisone) 10 Mg Tablet, 10 MG PO TAPER Take 4 tabs daily x 3 days, then 3 tabs daily x 3 days, then 2 tabs daily x 3 days, then 1 tab daily x 3 days and stop Sennosides (Senna) 8.6 Mg Tablet, 8.6 MG PO QHS Scheduled PRN Albuterol Sulf (Albuterol Sulfate) 2.5 Mg/3 Ml Vial.neb, 3 ML INH Q4H PRN for SOB/WHEEZING Albuterol Sulfate (Ventolin Hfa) 18 Gm Hfa.aer.ad, 2 PUFFS INH QID PRN for SHORTNESS OF BREATH Alprazolam (Alprazolam) 0.5 Mg Tablet, 0.25 MG PO TID PRN for ANXIETY/AGITATION Benzonatate (Benzonatate) 100 Mg Capsule, 100 MG PO TID PRN for COUGH Epinephrine (Epinephrine) 0.3 Mg/0.3 Ml Auto.injct, 0.3 MG IM ASDIRECTED PRN for ANAPHYLAXIS Oxybutynin Chloride (Ditropan Xl) 10 Mg Tab.er.24, 10 MG PO DAILY PRN for BLADDER PAIN Phenazopyridine HCl (Phenazopyridine HCl) 200 Mg Tablet, 200 MG PO DAILY PRN for BLADDER PAIN Allergies Coded Allergies: No Known Allergies (Unverified , 03/31/20) A-FIB/CHADSVASC A-FIB History Current/History of A-Fib/PAF?: No FARZANA FLORES MD Jul 27, 2021 15:27
[2021-07-27] MEDS ORDERED: POTASSIUM CHLORIDE 10MEQ SR TABLET PO ONE (15:30)
[2021-07-27] MEDS: ACETAMINOPHEN TAB 650MG DOSE (2X325MG) PO PRN (16:58)
[2021-07-27] MEDS: ENOXAPARIN 40MG/0.4ML SYRINGE (J1650 PER 10MG) SC SCH (16:59)
[2021-07-27] MEDS ORDERED: MONTELUKAST 10 MG TAB PO SCH (21:00)
[2021-07-27] MEDS ORDERED: AMITRIPTYLINE 25MG TABLET PO SCH (21:00)
[2021-07-27] MEDS: methylPREDNISolone 125MG 2ML VIAL IV SCH (22:06)
[2021-07-27 23:12] VITALS: BP 128/66
[2021-07-28 00:21] VITALS: BP 107/57
[2021-07-28] MEDS: methylPREDNISolone 125MG 2ML VIAL IV SCH ×2 (03:59→12:21)
[2021-07-28] MEDS: ACETAMINOPHEN TAB 650MG DOSE (2X325MG) PO PRN ×2 (03:59→08:33)
[2021-07-28 04:31] VITALS: BP 101/57
[2021-07-28] MEDS: FLUTICASONE HFA 110 MCG 12 GM INHALER (FLOVENT) INH SCH (07:52)
[2021-07-28] MEDS: SYMBICORT 160/4.5MCG INHALER 6GM INH SCH (07:52)
[2021-07-28 08:00] VITALS: BP 117/72
[2021-07-28] MEDS: PANTOPRAZOLE 40MG TAB (PROTONIX) PO SCH (08:19)
[2021-07-28] MEDS: ENOXAPARIN 40MG/0.4ML SYRINGE (J1650 PER 10MG) SC SCH (08:20)
[2021-07-28 08:38] LABS: BASO % 0.1 % (0.0-1.0); HEMATOCRIT 40.7 % (36.0-47.0); HEMOGLOBIN 13.7 g/dl (12.0-15.5); LYMPH # 0.4 10^3/uL (1.5-5.0); LYMPH % 1.9 % (24.0-44.0); MEAN CORPUSCULAR HEMOGLOBIN 30.2 pg (27.0-33.0); MEAN CORPUSCULAR HGB CONC 33.7 g/dl (32.0-36.5); MEAN CORPUSCULAR VOLUME 89.6 fl (80.0-96.0); MONO # 0.2 10^3/uL (0.0-0.8); NEUTROPHILS # 19.7 10^3/uL (1.5-8.5); PLATELET COUNT, AUTOMATED 210 10^3/uL (150-450); RED BLOOD COUNT 4.54 10^6/uL (4.00-5.40); WHITE BLOOD COUNT 20.5 10^3/uL (4.0-10.0)
[2021-07-28 08:59] LABS: ABG BASE EXCESS -1.6 (-2.0-2.0); ABG HCO3 22.3 MEQ/L (22.0-26.0); ABG O2 SATURATION 96.7 % (95.0-99.0); ABG PARTIAL PRESSURE CO2 35.2 mmHg (35.0-45.0); ABG PARTIAL PRESSURE O2 94.8 mmHg (75.0-100.0); ABG STANDARD HCO3 23.2 MEQ/L (22.0-26.0); ABG TOTAL CO2 23.4 MEQ/L (22.0-29.0)
[2021-07-28] MEDS ORDERED: cefTRIAXone SOD 1 GM in D5W MINI-BAG PLUS 50 ML IV SCH (09:00)
[2021-07-28 09:11] LABS: ALBUMIN 3.1 GM/DL (3.2-5.2); ALT/SGPT 21 U/L (12-78); BILIRUBIN,TOTAL 0.4 MG/DL (0.2-1.0); BLOOD UREA NITROGEN 12 MG/DL (7-18); CALCIUM LEVEL 8.2 MG/DL (8.5-10.1); CARBON DIOXIDE LEVEL 25 MEQ/L (21-32); CHLORIDE LEVEL 109 MEQ/L (98-107); CREATININE FOR GFR 0.58 MG/DL (0.55-1.30); GLOMERULAR FILTRATION RATE > 60.0 (>51); GLUCOSE, FASTING 194 MG/DL (70-100); MAGNESIUM LEVEL 2.5 MG/DL (1.8-2.4); POTASSIUM SERUM 4.4 MEQ/L (3.5-5.1); SODIUM LEVEL 139 MEQ/L (136-145); TOTAL PROTEIN 6.4 GM/DL (6.4-8.2)
[2021-07-28] MEDS: AZITHROMYCIN INJ 500 MG, VIAL MATE ADAPTER 1 EACH in NS 250 ML IV SCH (10:19)
[2021-07-28 12:00] VITALS: BP 119/68
--- NOTE | 2021-07-28 12:51 | DS.PDOC ---
Discharge Summary General Date of Admission Jul 27, 2021 at 11:26 Date of Discharge 07/28/21 Discharge Summary PROCEDURES PERFORMED DURING STAY: [None]. ADMITTING DIAGNOSES: sepsis community acquire pneumonia acute asthma exacerbation hx of depression, adjustment disorder hx of bladder spasms DISCHARGE DIAGNOSES: sepsis community acquire pneumonia acute asthma exacerbation hx of depression, adjustment disorder hx of bladder spasms COMPLICATIONS/CHIEF COMPLAINT: Asthma Exacerbation, Community Acquired Bacterial. HISTORY OF PRESENT ILLNESS: 51-year-old pleasant female with a past medical history of asthma, generalized anxiety irritable bowel syndrome adjustment disorder GERD, sciatica presented to the ER complaining of approximately 7-day history of wheezing and shortness of breath. 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 She states she is typically compliant with her inhalers. She also states that she has been having fever subjective fevers and chills at home with a maximum temperature of 102 degrees. On arrival patient was tachypneic with hypoxia and ABG showing respiratory alkalosis with a pH of 7.6. Patient was placed on nasal cannula 2 L to maintain saturations above 95%. Patient was found to have a leukocytosis of 18. Lactic acid was elevated to 6.2. X-ray did not indicate obvious consolidation however CT angiogram of the chest was performed. CT angio did not reveal pulmonary embolism but did reveal consolidation in the R lower lobe. Blood cultures were drawn. Patient was given magnesium with duo nebulizer treatments. Patient will be admitted to hospitalist service for the management of acute asthma exacerbation secondary to community-acquired pneumonia. HOSPITAL COURSE: Sepsis 2/2 CAP: patient meets sepsis criteria based on fever with leukocytosis, tachypnea, tachycardia and elevated lactic acid. I suspect leukocytosis likely 2/2 chronic steroid therapy. Started IV ceftriaxone and azithromycin for CAP. Blood cultures were sent. Lactic acid had resolved. Patient was afebrile with normal rate and respirations. She was discharged home with a 7-day course of Augmentin and doxycycline. Acute asthma exacerbation 2/2 CAP: hypoxic to 80s. Improved with NC 2l LPM. ABG showing respiratory alkalosis. pH 7.617. s/p nebs, mag in ER. Admit to PCU. Patient was given Solu-Medrol 25 mg IV in the ER. Continue to receive Solu- Medrol 80 mg IV every 8. She was treated with IV ceftriaxone and azithromycin for community-acquired pneumonia. Blood cultures were sent. On the morning of discharge patient was breathing on room air saturating well she had no wheezing or shortness of breath. Patient was discharged with a prednisone taper as well as a 7-day course of Augmentin and doxycycline. She will follow up closely with her primary care doctor to follow-up on final blood cultures. BEAU/depression/adjustment disorder:c/w amitriptyline. Bladder spasms: c/w oxybutinin. DISCHARGE MEDICATIONS: Please see below. ALLERGIES: Please see below. PHYSICAL EXAMINATION ON DISCHARGE: VITAL SIGNS: please see below General: NAD, comfortable HEENT: PERRLA, EOMI, sclerae clear Neck: supple, normal ROM, no JVD Respiratory: Lungs clear to auscultation. Wheezing had resolved. Rhonchi resolved. Good respiratory effort. Training room air 95% CVS: Tachycardic, regular, normal S1, S2, no murmurs Abdo: soft, no masses, no hepatosplenomegaly, BS+, no rebound tenderness Extremities: no edema, pulses 2+ MSK: no joint deformities, normal ROM Neuro: no focal neuro deficits, moving all 4 extremities, CN2-12 intact. Strength 5/5 in all 4 extremities. No nystagmus. Psych: calm, cooperative, AAO x 3 LABORATORY DATA: Please see below. IMAGING: CT angiogram on 07/27/2021: Motion degradation limits evaluation distal segmental and subsegmental pulmonary arterial branches. No central pulmonary emboli are appreciated. Right lower lobe pneumonia. CXR on 07/27/21: IMPRESSION: Mild bilateral perihilar and bibasilar reticulonodular opacities PROGNOSIS: good ACTIVITY: [As tolerated]. DIET: as tolerated DISCHARGE PLAN: DC home with prednisone taper and 7-day course of Augmentin and doxycycline. Please use albuterol and Breztri inhlares. close PCP follow-up. Follow-up with pulmonary. DISPOSITION: Home DISCHARGE INSTRUCTIONS: . Please follow-up with your primary care doctor within 3-5 days . Please follow-up with pulmonology within 1-2 weeks . Please taking medications as prescribed. Augmentin and doxycycline for 7 da ys. . If you develop bleeding, chest pain, shortness of breath, seizures, nausea, fevers, or otherwise worsening of your symptoms, please call 911 or return to the nearest emergency room ITEMS TO FOLLOWUP ON ON OUTPATIENT: Final blood cultures. DISCHARGE CONDITION: [Stable]. TIME SPENT ON DISCHARGE: 35 minutes Vital Signs/I&Os Vital Signs Date Time Temp Pulse Resp B/P (MAP) Pulse Ox O2 Delivery O2 Flow Rate FiO2 07/28/21 12:00 119/68 (85) Room Air 07/28/21 08:00 97.4 73 17 93 07/28/21 04:00 1.0 I&O- Last 24 Hours up to 6 AM 07/28/21 06:00 Intake Total 2330 ml Balance 2330 ml Laboratory Data Labs 24H Laboratory Tests 2 07/28/21 08:25: Immature Granulocyte % (Auto) 1.0, Neutrophils (%) (Auto) 96.0H, Lymphocytes (%) (Auto) 1.9L, Monocytes (%) (Auto) 1.0L, Eosinophils (%) (Auto) 0.0, Basophils (%) (Auto) 0.1, Neutrophils # (Auto) 19.7H, Lymphocytes # (Auto) 0.4L, Monocytes # (Auto) 0.2, Eosinophils # (Auto) 0.0, Basophils # (Auto) 0.0, Nucleated Red Blood Cells % (auto) 0.0, Anion Gap 5L, Glomerular Filtration Rate > 60.0, Lact ic Acid Level 1.0, Calcium Level 8.2L, Magnesium Level 2.5H, Total Bilirubin 0.4, Aspartate Amino Transf (AST/SGOT) < 3L, Alanine Aminotransferase (ALT/SGPT) 21, Alkaline Phosphatase 72, Total Protein 6.4, Albumin 3.1L, Albumin/Globulin Ratio 0.9L 07/28/21 08:42: Blood Gas Bicarbonate Standard 23.2, Arterial Blood pH 7.420, Arterial Blood Partial Pressure CO2 35.2, Arterial Blood Partial Pressure O2 94.8, Arterial Blood Total CO2 23.4, Arterial Blood HCO3 22.3, Arterial Blood Base Excess -1.6, Arterial Blood Oxygen Saturation 96.7 CBC/BMP Laboratory Tests 07/28/21 08:25 Microbiology Microbiology 07/27/21 Blood Culture - Preliminary, Resulted No growth after 24 hours . All specim... 07/27/21 Blood Culture - Preliminary, Resulted No growth after 24 hours . All specim... 07/27/21 Respiratory Virus Panel (PCR) (DEBBIE) - Final, Complete Discharge Medications Scheduled Amitriptyline HCl (Amitriptyline HCl) 25 Mg Tablet, 25 MG PO QHS, (Reported) Amoxicillin/Potassium Clav (Augmentin 875-125 Tablet) 1 Each Tablet, 1 TAB PO BID Budesonide/Glycopyr/Formoterol (Breztri Aerosphere Inhaler) 160 Mcg-9 Mcg-4.8 Mcg/Actuation Hfa.aer.ad, 2 PUFFS INH BID Cetirizine HCl (ZyrTEC) 10 Mg Capsule, 10 MG PO DAILY, (Reported) Cyclosporine (Restasis) 0.05% Droperette, 1 DROP OU BID, (Reported) Doxycycline Monohydrate (Doxycycline) 100 Mg Capsule, 1 CAP PO BID Fluconazole (Diflucan) 150 Mg Tablet, 1 TAB PO ONCE for yeast infection Fluticasone Propionate (Flovent Hfa) 110 Mcg/Act Aer.w.adap, 2 PUFFS INH BID, (Reported) Hydroxyzine HCl (Hydroxyzine HCl) 25 Mg Tablet, 50 MG PO QHS, (Reported) Imiquimod (Imiquimod) 1 Each Cream.pack, 1 APLCT TOP QHS, (Reported) APPLIES TO RIGHT RING FINGER Montelukast Sodium (Singulair) 10 Mg Tablet, 10 MG PO QHS, (Reported) Pantoprazole Sodium (Pantoprazole Sodium) 40 Mg Tablet.dr, 40 MG PO DAILY Prednisone (Prednisone) 10 Mg Tablet, 10 MG PO TAPER Take 4 tabs daily x 3 days, then 3 tabs daily x 3 days, then 2 tabs daily x 3 days, then 1 tab daily x 3 days and stop Sennosides (Senna) 8.6 Mg Tablet, 8.6 MG PO QHS, (Reported) Scheduled PRN Albuterol Sulf (Albuterol Sulfate) 2.5 Mg/3 Ml Vial.neb, 3 ML INH Q4H PRN for SO B/WHEEZING Albuterol Sulfate (Ventolin Hfa) 18 Gm Hfa.aer.ad, 2 PUFFS INH QID PRN for SHORTNESS OF BREATH Alprazolam (Alprazolam) 0.5 Mg Tablet, 0.25 MG PO TID PRN for ANXIETY/AGITATION, (Reported) Benzonatate (Benzonatate) 100 Mg Capsule, 100 MG PO TID PRN for COUGH, (Reported) Epinephrine (Epinephrine) 0.3 Mg/0.3 Ml Auto.injct, 0.3 MG IM ASDIRECTED PRN for ANAPHYLAXIS, (Reported) Oxybutynin Chloride (Ditropan Xl) 10 Mg Tab.er.24, 10 MG PO DAILY PRN for CHRISTIAN DDER PAIN, (Reported) Phenazopyridine HCl (Phenazopyridine HCl) 200 Mg Tablet, 200 MG PO DAILY PRN for BLADDER PAIN, (Reported) Allergies Coded Allergies: No Known Allergies (Unverified , 03/31/20) FARZANA FLORES MD Jul 28, 2021 12:51
[2021-07-28] MEDS ORDERED: DOXY-350 PO (12:59)
[2021-07-28] MEDS ORDERED: AUGM875T28 PO (12:59)
[2021-07-28] MEDS ORDERED: PRED10TA2 PO (12:59)
[2021-07-28] MEDS ORDERED: BUDE10.7 INH (12:59)
[2021-07-28] MEDS ORDERED: VENTAER INH (12:59)
[2021-07-28] MEDS ORDERED: DIFL150T PO (12:59)
[2021-07-28] MEDS ORDERED: PANT40TA29 PO (12:59)
[2021-07-28] MEDS ORDERED: ALBU83IN INH (12:59)
== END 2021-07-28 14:39 | disposition home or self-care (01) | DRG 871 ==
LOC: M ED 04:13 → M ED INP 11:26 → ENRESERV 15:43 → M PCU 16:29
PROVIDERS: ADMIT Family Medicine; ATTEND Family Medicine
DX: A41.9 Sepsis, unspecified organism (principal); J18.9 Pneumonia, unspecified organism; E87.3 Alkalosis; J45.901 Unspecified asthma with (acute) exacerbation; F41.1 Generalized anxiety disorder; K58.9 Irritable bowel syndrome, unspecified; F43.20 Adjustment disorder, unspecified; K21.9 Gastro-esophageal reflux disease without esophagitis; R73.03 Prediabetes; G47.00 Insomnia, unspecified; K64.4 Residual hemorrhoidal skin tags; K64.8 Other hemorrhoids; M54.30 Sciatica, unspecified side; Z90.79 Acquired absence of other genital organ(s); N32.89 Other specified disorders of bladder; Z20.822 Contact with and (suspected) exposure to COVID-19; Z79.899 Other long term (current) drug therapy

== ENCOUNTER → 2021-09-26 | Outpatient (CLI) | payer OTHER ==
[~2021-09-26] MED LIST changes: +ALBU83IN INH; +AMIT25TA17 PO; +AUGM875T28 PO; +BENZ-18 PO; +BUDE10.7 INH; +CETI10CA2 PO; +DIFL150T PO; +DOXY-350 PO; +EPIN0.3I11 IM; +FLUT11IN INH; +IMIQ5CRE TOP; +PANT40TA29 PO; +PRED10TA2 PO
--- NOTE | 2021-09-26 13:38 | REP ---
INDICATION: SEVERE PERSISTENT ASTHMA, UNCOMPLICATED. COMPARISON: 07/27/2021 TECHNIQUE: PA and lateral FINDINGS: The cardiomediastinal silhouette is within normal limits. There is a nodule in the superior lingular region. Lung bains are otherwise clear and the pleural angles are sharp. The osseous structures are within normal limits. IMPRESSION: There is a nodule in the left lung. This was seen on prior CT of 04/12/2021. All interested parties should review that report. Additionally, the nodule seen to be non hypermetabolic on PET-CT of 05/31/2021. All interested parties should review that report as well. Otherwise, the lung bains are clear and there is no evidence of acute cardiopulmonary disease. Sign rib <Electronically signed by Rupesh Traore > 09/26/21 [id number]
[2021-09-30 23:12] LABS: ASPERGILLUS FLAVUS ABY Negative (Neg:<1:1); ASPERGILLUS FUMIGATUS ABY Negative (Neg:<1:1); ASPERGILLUS NIGER ABY Negative (Neg:<1:1)
== END ==
LOC: M PLAIMG 13:01
PROVIDERS: ATTEND Nurse Practitioner Family
DX: R91.1 Solitary pulmonary nodule (principal); J45.50 Severe persistent asthma, uncomplicated

== ENCOUNTER → 2021-10-06 | Outpatient (REF) | payer OTHER | LOC: M SFHCPLAZ 13:13 | PROVIDERS: ATTEND Physician Assistant | DX: R05.9 Cough, unspecified (principal) ==

== ENCOUNTER 2021-10-26 14:06 | Outpatient (CLI) | payer OTHER ==
[~2021-10-26] VITALS: Ht 162.6 cm; Wt 69.0 kg
[~2021-10-26 14:06] MED LIST changes: +ALBUTEROL 90 MCG/ACT 8GM HFA INHALER INH PRN; +ALBUTEROL SULFATE 2.5 MG/0.5 ML INH NEB SOLN INH PRN; +CASIRIVIMAB (REGN10933) 600 MG, IMDEVIMAB (REGN10987) 600 MG in NS 250 ML IV ONE; +EPINEPHrine INJ 1 MG/ML 1ML AMP IM PRN; +IMIQ1CRE6 TOP; -IMIQ5CRE TOP; +NS 1,000 ML IV SCH; +diphenhydrAMINE 50MG/ML VIAL (J1200) IV ONE; +diphenhydrAMINE 50MG/ML VIAL (J1200) IV PRN; +methylPREDNISolone 125MG 2ML VIAL IV PRN; +methylPREDNISolone 40MG 1ML VIAL IV ONE
[2021-10-26 14:41] VITALS: BP 122/67
[2021-10-26 15:11] VITALS: BP 114/61
[2021-10-26 15:41] VITALS: BP 119/56
[2021-10-26 16:41] VITALS: BP 137/78
== END 2021-10-26 16:41 | disposition home or self-care (01) ==
LOC: M OPCLI4PR 14:06
PROVIDERS: ATTEND Nurse Practitioner Family
DX: U07.1 COVID-19 (principal)
CPT/HCPCS: 96375; J1200; J2920; M0243

== ENCOUNTER → 2022-03-20 | Outpatient (REF) | payer OTHER ==
[~2022-03-20] MED LIST changes: -ALBUTEROL 90 MCG/ACT 8GM HFA INHALER INH PRN; -ALBUTEROL SULFATE 2.5 MG/0.5 ML INH NEB SOLN INH PRN; -CASIRIVIMAB (REGN10933) 600 MG, IMDEVIMAB (REGN10987) 600 MG in NS 250 ML IV ONE; -EPINEPHrine INJ 1 MG/ML 1ML AMP IM PRN; -NS 1,000 ML IV SCH; -diphenhydrAMINE 50MG/ML VIAL (J1200) IV ONE; -diphenhydrAMINE 50MG/ML VIAL (J1200) IV PRN; -methylPREDNISolone 125MG 2ML VIAL IV PRN; -methylPREDNISolone 40MG 1ML VIAL IV ONE
== END ==
LOC: M SFHCDERM 14:13
PROVIDERS: ATTEND Physician Assistant
DX: B07.9 Viral wart, unspecified (principal)

== ENCOUNTER → 2022-03-20 | Outpatient (CLI) | payer OTHER | LOC: M RAD 14:38 | PROVIDERS: ATTEND Internal Medicine Pulmonary Disease | DX: R91.8 Other nonspecific abnormal finding of lung field (principal) ==

== ENCOUNTER → 2022-06-13 | Outpatient (CLI) | payer OTHER ==
[~2022-06-13] MED LIST changes: +ALBU2.5V10 INH; -ALBU83IN INH
== END ==
LOC: M WHC 14:51
PROVIDERS: ATTEND Student in an Organized Health Care Education/Training Program
DX: Z12.31 Encounter for screening mammogram for malignant neoplasm of breast (principal); Z98.82 Breast implant status

== ENCOUNTER → 2022-07-19 | Outpatient (CLI) | payer OTHER | LOC: M RAD 09:33 | PROVIDERS: ATTEND Internal Medicine Pulmonary Disease | DX: R91.8 Other nonspecific abnormal finding of lung field (principal) ==

== ENCOUNTER → 2023-01-26 | Outpatient (CLI) | payer OTHER ==
[~2023-01-26] MED LIST changes: -DOXY-350 PO; +DOXY-444 PO; +MONT-5 PO; -SING10TA32 PO
== END ==
LOC: M PLAIMG 13:15
PROVIDERS: ATTEND Internal Medicine Pulmonary Disease
DX: R91.1 Solitary pulmonary nodule (principal)

== ENCOUNTER → 2023-02-16 | Outpatient (CLI) | payer OTHER ==
[2023-02-16 14:36] LABS: BASO # 0.1 10^3/uL (0.0-0.2); BASO % 0.5 % (0.0-1.0); EOS # 0.1 10^3/uL (0.0-0.5); EOS % 0.7 % (0.0-3.0); HEMOGLOBIN 15.3 g/dl (12.0-15.5); LYMPH # 1.1 10^3/uL (1.5-5.0); LYMPH % 11.3 % (24.0-44.0); MEAN CORPUSCULAR HEMOGLOBIN 29.4 pg (27.0-33.0); MEAN CORPUSCULAR HGB CONC 33.3 g/dl (32.0-36.5); MEAN CORPUSCULAR VOLUME 88.5 fl (80.0-96.0); MONO # 0.5 10^3/uL (0.0-0.8); MONO % 5.1 % (2.0-8.0); NEUTROPHILS % 82.2 % (36.0-66.0); PLATELET COUNT, AUTOMATED 251 10^3/uL (150-450); WHITE BLOOD COUNT 9.8 10^3/uL (4.0-10.0)
[2023-02-16 14:39] LABS: APPEARANCE, URINE CLEAR (CLEAR); BACTERIA, URINE AUTO NEGATIVE (NEGATIVE); BILIRUBIN, URINE AUTO NEGATIVE (NEGATIVE); BLOOD, URINE BLOOD NEGATIVE (NEGATIVE); COLOR, URINE YELLOW (YELLOW); GLUCOSE, URINE (UA) AUTO NEGATIVE (NEGATIVE); KETONE, URINE AUTO TRACE mg/dL (NEGATIVE); LEUKOCYTE ESTERASE, URINE AUTO NEGATIVE (NEGATIVE); MUCUS, URINE SMALL (NEGATIVE); NITRITE, URINE AUTO NEGATIVE (NEGATIVE); PROTEIN, URINE AUTO NEGATIVE (NEGATIVE); RBC, URINE AUTO 0 /HPF (0-3); SPECIFIC GRAVITY URINE AUTO 1.023 (1.002-1.035); SQUAMOUS EPITHELIAL CELL UR AU 4 /HPF (0-6); UROBILINOGEN, URINE AUTO 0.2 mg/dL (0.0-2.0); WBC, URINE AUTO 0 /HPF (0-3)
[2023-02-16 14:44] LABS: COMPLEMENT C3 151.3 MG/DL (90.0-170.0)
[2023-02-16 14:45] LABS: RHEUMATOID FACTOR QUANT 6.5 IU/ML (<14)
[2023-02-16 14:46] LABS: THYROID STIMULATING HORMONE 3.546 uIU/ML (0.55-4.78)
[2023-02-16 15:05] LABS: TOTAL PROTEIN,RANDOM URINE 13.9 MG/DL (0.0-14.0)
[2023-02-16 15:10] LABS: CREATININE,RANDOM URINE 150.4 MG/DL
[2023-02-20 12:08] LABS: ANA (HEP2) Negative (.); ANTI DS-DNA AB Negative (Negative); CYCLIC CITRULLINATED PEPTIDE 4 units (0-19)
== END ==
LOC: M PLALAB 09:11
PROVIDERS: ATTEND Student in an Organized Health Care Education/Training Program
DX: Z13.29 Encounter for screening for other suspected endocrine disorder (principal); R50.9 Fever, unspecified; M79.10 Myalgia, unspecified site; M25.50 Pain in unspecified joint

== ENCOUNTER → 2023-04-27 | Outpatient (REF) | payer OTHER | LOC: M SFHCPLAZ 17:10 | PROVIDERS: ATTEND Physician Assistant | DX: J02.9 Acute pharyngitis, unspecified (principal) ==

== ENCOUNTER → 2023-06-08 | Outpatient (CLI) | payer OTHER ==
[~2023-06-08] MED LIST changes: -FLUT11IN INH; +FLUT12AE6 INH
[2023-06-08 11:05] LABS: HEMATOCRIT 41.2 % (36.0-47.0)
[2023-06-08 11:06] LABS: BASO % 0.5 % (0.0-1.0); EOS # 0.1 10^3/uL (0.0-0.5); EOS % 0.8 % (0.0-3.0); HEMATOCRIT 41.3 % (36.0-47.0); HEMOGLOBIN 13.7 g/dl (12.0-15.5); LYMPH # 1.1 10^3/uL (1.5-5.0); LYMPH % 17.4 % (24.0-44.0); MEAN CORPUSCULAR HEMOGLOBIN 29.1 pg (27.0-33.0); MEAN CORPUSCULAR HGB CONC 33.2 g/dl (32.0-36.5); MEAN CORPUSCULAR VOLUME 87.7 fl (80.0-96.0); MONO # 0.4 10^3/uL (0.0-0.8); MONO % 6.9 % (2.0-8.0); NEUTROPHILS # 4.5 10^3/uL (1.5-8.5); NEUTROPHILS % 73.7 % (36.0-66.0); PLATELET COUNT, AUTOMATED 186 10^3/uL (150-450); RED BLOOD COUNT 4.71 10^6/uL (4.00-5.40); WHITE BLOOD COUNT 6.1 10^3/uL (4.0-10.0)
[2023-06-08 11:47] LABS: HEMOGLOBIN A1c 7.9 % (4.0-6.0)
[2023-06-08 11:51] LABS: CREATININE, URINE 168.1 MG/DL; MAU/CREAT RATIO 2.3 MCG/MG (0.0-30.0)
[2023-06-08 11:56] LABS: ALBUMIN 3.7 G/DL (3.2-5.2); ALKALINE PHOSPHATASE 96 U/L (46-116); ALT/SGPT 62 U/L (7.0-40); AST/SGOT 23 U/L (<34); BILIRUBIN,TOTAL 0.4 MG/DL (0.3-1.2); BLOOD UREA NITROGEN 16 MG/DL (9-23); CALCIUM LEVEL 8.9 MG/DL (8.5-10.1); CARBON DIOXIDE LEVEL 24 MMOL/L (20-31); CHLORIDE LEVEL 105 MMOL/L (98-107); CREATININE FOR GFR 0.76 MG/DL (0.55-1.30); FREE T4 1.13 NG/DL (0.89-1.76); GLOMERULAR FILTRATION RATE > 60.0 (>51); GLUCOSE, FASTING 183 MG/DL (60-100); POTASSIUM SERUM 4.2 MMOL/L (3.5-5.1); SODIUM LEVEL 139 MMOL/L (136-145); THYROID STIMULATING HORMONE 3.078 uIU/ML (0.55-4.78); TOTAL 25(OH) VITAMIN D 29.4 NG/ML (20.0-100.0); TOTAL PROTEIN 6.6 G/DL (5.7-8.2); VITAMIN B12 LEVEL 459 PG/ML (211-911)
== END ==
LOC: M PLALAB 07:15
PROVIDERS: ATTEND Student in an Organized Health Care Education/Training Program
DX: R73.03 Prediabetes (principal); R53.82 Chronic fatigue, unspecified; Z86.39 Personal history of other endocrine, nutritional and metabolic disease

== ENCOUNTER → 2023-06-14 | Outpatient (CLI) | payer OTHER, SELFPAY | LOC: M WHC 16:06 | PROVIDERS: ATTEND Student in an Organized Health Care Education/Training Program | DX: Z12.31 Encounter for screening mammogram for malignant neoplasm of breast (principal) ==

== ENCOUNTER → 2023-07-09 | Outpatient (REF) | payer OTHER ==
[~2023-07-09] MED LIST changes: -AMIT25TA17 PO; +AMIT25TA19 PO
[2023-07-09 17:23] LABS: C REACTIVE PROTEIN QUANTITATIV 3.4 MG/DL (<1.0)
[2023-07-09 17:25] LABS: MAGNESIUM LEVEL 1.9 MG/DL (1.8-2.4)
== END ==
LOC: M SFHCRHEU 15:42
PROVIDERS: ATTEND Internal Medicine
DX: M25.50 Pain in unspecified joint (principal); M79.10 Myalgia, unspecified site; R53.83 Other fatigue

== ENCOUNTER → 2023-07-09 | Outpatient (CLI) | payer OTHER | LOC: M PLAIMG 16:10 | PROVIDERS: ATTEND Internal Medicine | DX: M25.50 Pain in unspecified joint (principal) ==

== ENCOUNTER → 2023-08-03 | Outpatient (CLI) | payer OTHER | LOC: M SLEEP HO 11:15 | PROVIDERS: ATTEND Internal Medicine | DX: R53.83 Other fatigue (principal) ==

== ENCOUNTER → 2023-08-07 | Outpatient (CLI) | payer OTHER | LOC: M RAD 09:16 | PROVIDERS: ATTEND Internal Medicine Pulmonary Disease | DX: R91.8 Other nonspecific abnormal finding of lung field (principal); K76.0 Fatty (change of) liver, not elsewhere classified; M85.89 Other specified disorders of bone density and structure, multiple sites ==

== ENCOUNTER → 2023-08-29 | Outpatient (REF) | payer OTHER | LOC: M LAB REF 16:37 | PROVIDERS: ATTEND Surgery | DX: D03.59 Melanoma in situ of other part of trunk (principal) ==

== ENCOUNTER 2023-11-12 13:18 | Emergency (ER) | payer OTHER ==
[~2023-11-12] VITALS: Ht 160 cm; Wt 66.4 kg
[2023-11-12] MEDS ORDERED: ISOVUE-370 76% 100ML VIAL As Ordered ONE (14:11)
[2023-11-12 14:26] LABS: BASO # 0.1 10^3/uL (0.0-0.2); BASO % 0.5 % (0.0-1.0); EOS # 0.5 10^3/uL (0.0-0.5); EOS % 5.3 % (0.0-3.0); HEMATOCRIT 40.5 % (36.0-47.0); HEMOGLOBIN 13.8 g/dl (12.0-15.5); LYMPH % 10.3 % (24.0-44.0); MEAN CORPUSCULAR HEMOGLOBIN 28.9 pg (27.0-33.0); MEAN CORPUSCULAR HGB CONC 34.1 g/dl (32.0-36.5); MEAN CORPUSCULAR VOLUME 84.9 fl (80.0-96.0); MONO # 0.4 10^3/uL (0.0-0.8); MONO % 4.6 % (2.0-8.0); NEUTROPHILS # 7.7 10^3/uL (1.5-8.5); NEUTROPHILS % 79.2 % (36.0-66.0); PLATELET COUNT, AUTOMATED 252 10^3/uL (150-450); RED BLOOD COUNT 4.77 10^6/uL (4.00-5.40); WHITE BLOOD COUNT 9.7 10^3/uL (4.0-10.0)
[2023-11-12 14:42] LABS: ALBUMIN 4.3 G/DL (3.2-5.2); BILIRUBIN,DIRECT 0.2 MG/DL (<0.4); BILIRUBIN,TOTAL 0.7 MG/DL (0.3-1.2); TOTAL PROTEIN 7.4 G/DL (5.7-8.2)
[2023-11-12] MEDS ORDERED: KETOROLAC 30 MG/ML 1ML VIAL IV ONE (16:35)
[2023-11-12] MEDS ORDERED: FLEET OIL RETENTION ENEMA PR ONE (18:15)
[2023-11-12] MEDS ORDERED: MIRA3350 PO (19:43)
[2023-11-12] MEDS ORDERED: COLA100C5 PO (19:43)
[2023-11-12] MEDS ORDERED: DULC10SU2 PR (19:43)
[2023-11-12] MEDS ORDERED: BISACODYL 10MG SUPP PR ONE (19:45)
[2023-11-12 19:53] VITALS: BP 124/74; TEMP 98.8; O2SAT 98
== END 2023-11-12 19:55 | disposition home or self-care (01) ==
LOC: M ED 13:18
DX: K56.41 Fecal impaction (principal); K59.00 Constipation, unspecified; K21.9 Gastro-esophageal reflux disease without esophagitis; J45.909 Unspecified asthma, uncomplicated; Z79.899 Other long term (current) drug therapy
CPT/HCPCS: 74177; 80047; 80076; 83690; 85025; 96374; 99284; J1885; Q9967

== ENCOUNTER → 2024-03-04 | Outpatient (CLI) | payer OTHER ==
[~2024-03-04] MED LIST changes: +COLA100C5 PO; +DULC10SU2 PR; +MIRA3350 PO
== END ==
LOC: M PLAIMG 10:12
PROVIDERS: ATTEND Internal Medicine Pulmonary Disease
DX: R91.8 Other nonspecific abnormal finding of lung field (principal); J47.9 Bronchiectasis, uncomplicated

== ENCOUNTER → 2024-04-30 | Outpatient (CLI) | payer OTHER ==
[~2024-04-30] MED LIST changes: +DOXY-440 PO; -DOXY-444 PO
[2024-04-30 10:23] LABS: BASO % 0.4 % (0.0-1.0); EOS # 0.1 10^3/uL (0.0-0.5); EOS % 1.1 % (0.0-3.0); HEMOGLOBIN 13.5 g/dl (12.0-15.5); LYMPH % 19.2 % (24.0-44.0); MEAN CORPUSCULAR HEMOGLOBIN 28.8 pg (27.0-33.0); MEAN CORPUSCULAR HGB CONC 32.9 g/dl (32.0-36.5); MEAN CORPUSCULAR VOLUME 87.6 fl (80.0-96.0); MONO # 0.3 10^3/uL (0.0-0.8); MONO % 6.4 % (2.0-8.0); NEUTROPHILS # 3.9 10^3/uL (1.5-8.5); NEUTROPHILS % 72.7 % (36.0-66.0); PLATELET COUNT, AUTOMATED 245 10^3/uL (150-450); RED BLOOD COUNT 4.68 10^6/uL (4.00-5.40); WHITE BLOOD COUNT 5.3 10^3/uL (4.0-10.0)
[2024-04-30 10:26] LABS: ALBUMIN 3.8 G/DL (3.2-5.2); ALKALINE PHOSPHATASE 80 U/L (46-116); ALT/SGPT 30 U/L (7.0-40); AST/SGOT 14 U/L (<34); BILIRUBIN,TOTAL 0.3 MG/DL (0.3-1.2); BLOOD UREA NITROGEN 15 MG/DL (9-23); CALCIUM LEVEL 9.3 MG/DL (8.5-10.1); CARBON DIOXIDE LEVEL 29 MMOL/L (20-31); CHLORIDE LEVEL 106 MMOL/L (98-107); CHOLESTEROL LEVEL 179 MG/DL (<200); CHOLESTEROL RISK RATIO 3.91 (<5); CREATININE FOR GFR 0.74 MG/DL (0.55-1.30); GLOMERULAR FILTRATION RATE > 60.0 (>51); GLUCOSE, FASTING 86 MG/DL (60-100); HDL CHOLESTEROL 45.7 MG/DL (>40); LDL CHOLESTEROL 111.7 MG/DL (<100); NON-HDL-C 133.3 MG/DL; POTASSIUM SERUM 4.4 MMOL/L (3.5-5.1); SODIUM LEVEL 140 MMOL/L (136-145); TOTAL PROTEIN 6.7 G/DL (5.7-8.2); TRIGLYCERIDES LEVEL 108 MG/DL (<150)
[2024-04-30 10:30] LABS: FREE T4 0.97 NG/DL (0.89-1.76); THYROID STIMULATING HORMONE 3.156 uIU/ML (0.55-4.78)
[2024-04-30 10:51] LABS: HEMOGLOBIN A1c 5.2 % (4.0-6.0)
== END ==
LOC: M PLALAB 07:43
PROVIDERS: ATTEND Student in an Organized Health Care Education/Training Program
DX: E11.65 Type 2 diabetes mellitus with hyperglycemia (principal); Z13.29 Encounter for screening for other suspected endocrine disorder; Z86.39 Personal history of other endocrine, nutritional and metabolic disease

== ENCOUNTER → 2024-05-03 | Outpatient (REF) | payer OTHER ==
[2024-05-03 20:45] LABS: Trichomonas vaginalis (AMP) NOT DETECTED (NEGATIVE)
[2024-05-03 21:09] LABS: GC DNA AMPLIFICATION NEGATIVE (NEGATIVE)
== END ==
LOC: M LAB REF 19:13
PROVIDERS: ATTEND Physician Assistant
DX: N76.0 Acute vaginitis (principal)

== ENCOUNTER → 2024-05-03 | Outpatient (REF) | payer OTHER | LOC: M LAB REF 19:20 | PROVIDERS: ATTEND Physician Assistant | DX: N76.0 Acute vaginitis (principal) ==

== ENCOUNTER → 2024-06-23 | Outpatient (REF) | payer OTHER ==
[2024-06-23 14:26] LABS: AMORPHOUS SEDIMENT SMALL (NEGATIVE); APPEARANCE, URINE TURBID (CLEAR); BACTERIA, URINE AUTO NEGATIVE (NEGATIVE); BILIRUBIN, URINE AUTO NEGATIVE (NEGATIVE); BLOOD, URINE BLOOD NEGATIVE (NEGATIVE); COLOR, URINE AMBER (YELLOW); GLUCOSE, URINE (UA) AUTO NEGATIVE (NEGATIVE); KETONE, URINE AUTO TRACE mg/dL (NEGATIVE); LEUKOCYTE ESTERASE, URINE AUTO 3+ (NEGATIVE); MUCUS, URINE MODERATE (NEGATIVE); NITRITE, URINE AUTO NEGATIVE (NEGATIVE); PROTEIN, URINE AUTO 1+ mg/dL (NEGATIVE); RBC, URINE AUTO 2 /HPF (0-3); SQUAMOUS EPITHELIAL CELL UR AU 11 /HPF (0-6); WBC, URINE AUTO 4 /HPF (0-3)
== END ==
LOC: M SMT 13:01
PROVIDERS: ATTEND Specialist
DX: N30.10 Interstitial cystitis (chronic) without hematuria (principal)

== ENCOUNTER → 2024-08-21 | Outpatient (CLI) | payer OTHER | LOC: M PLAIMG 10:01 | PROVIDERS: ATTEND Internal Medicine Pulmonary Disease | DX: R91.8 Other nonspecific abnormal finding of lung field (principal) ==

== ENCOUNTER → 2024-09-08 | Outpatient (REF) | payer OTHER ==
[2024-09-08 18:46] LABS: BASO % 0.4 % (0.0-1.0); EOS # 0.1 10^3/uL (0.0-0.5); EOS % 0.7 % (0.0-3.0); HEMATOCRIT 40.6 % (36.0-47.0); HEMOGLOBIN 13.4 g/dl (12.0-15.5); LYMPH # 1.2 10^3/uL (1.5-5.0); LYMPH % 15.4 % (24.0-44.0); MEAN CORPUSCULAR HEMOGLOBIN 29.5 pg (27.0-33.0); MEAN CORPUSCULAR VOLUME 89.2 fl (80.0-96.0); MONO # 0.4 10^3/uL (0.0-0.8); MONO % 4.9 % (2.0-8.0); NEUTROPHILS # 5.9 10^3/uL (1.5-8.5); NEUTROPHILS % 78.3 % (36.0-66.0); PLATELET COUNT, AUTOMATED 218 10^3/uL (150-450); RED BLOOD COUNT 4.55 10^6/uL (4.00-5.40); WHITE BLOOD COUNT 7.5 10^3/uL (4.0-10.0)
[2024-09-08 19:05] LABS: ERYTHROCYTE SEDIMENTATION RATE 20 mm/hr (0-30)
[2024-09-10 23:47] LABS: CARDIOLIPIN IGA ANTIBODY < 2.0 APL-U/mL (<20.0); CARDIOLIPIN IGG ANTIBODY < 2.0 GPL-U/mL (<20.0); CARDIOLIPIN IGM ANTIBODY 2.8 MPL-U/mL (<20.0)
== END ==
LOC: M SFHCRHEU 11:45
PROVIDERS: ATTEND Internal Medicine
DX: R70.0 Elevated erythrocyte sedimentation rate (principal); R79.82 Elevated C-reactive protein (CRP); D72.810 Lymphocytopenia

== ENCOUNTER → 2025-01-29 | Outpatient (CLI) | payer OTHER ==
[~2025-01-29] MED LIST changes: -ADV250INH INH; +ADVA1AER9 INH
== END ==
LOC: M WHC 09:10
PROVIDERS: ATTEND Student in an Organized Health Care Education/Training Program
DX: Z12.31 Encounter for screening mammogram for malignant neoplasm of breast (principal); R92.333 Mammographic heterogeneous density, bilateral breasts; Z98.82 Breast implant status

== ENCOUNTER → 2025-02-14 | Outpatient (CLI) | payer OTHER | LOC: M RAD 15:30 | PROVIDERS: ATTEND Student in an Organized Health Care Education/Training Program | DX: M19.011 Primary osteoarthritis, right shoulder (principal) ==

== ENCOUNTER → 2025-07-13 | Outpatient (REF) | payer OTHER | LOC: M SFHCDERM 17:18 | PROVIDERS: ATTEND Physician Assistant | DX: D21.4 Benign neoplasm of connective and other soft tissue of abdomen (principal) ==

== ENCOUNTER → 2025-07-13 | Outpatient (CLI) | payer OTHER ==
[2025-07-13 11:32] LABS: BASO # 0.0 10^3/uL (0.0-0.2); BASO % 0.3 % (0.0-1.0); EOS # 0.1 10^3/uL (0.0-0.5); EOS % 0.9 % (0.0-3.0); LYMPH # 0.9 10^3/uL (1.5-5.0); LYMPH % 13.6 % (24.0-44.0); MONO # 0.4 10^3/uL (0.0-0.8); MONO % 6.0 % (2.0-8.0); NEUTROPHILS # 5.3 10^3/uL (1.5-8.5); NEUTROPHILS % 78.9 % (36.0-66.0); PLATELET COUNT, AUTOMATED 209 10^3/uL (150-450)
[2025-07-13 12:00] LABS: ESTIMATED AVERAGE GLUCOSE 108.0 MG/DL (60-110)
[2025-07-13 12:01] LABS: ALT/SGPT 22 U/L (7.0-40); AST/SGOT 19 U/L (<34); CALCIUM LEVEL 8.2 MG/DL (8.5-10.1); CARBON DIOXIDE LEVEL 26 MMOL/L (20-31); CHLORIDE LEVEL 108 MMOL/L (98-107); CHOLESTEROL LEVEL 175 MG/DL (<200); CHOLESTEROL RISK RATIO 3.32 (<5); CREATININE FOR GFR 0.68 MG/DL (0.55-1.30); GLOMERULAR FILTRATION RATE > 90.0 (>51); LDL CHOLESTEROL 107.4 MG/DL (<100); NON-HDL-C 122.4 MG/DL; POTASSIUM SERUM 4.5 MMOL/L (3.5-5.1); SODIUM LEVEL 144 MMOL/L (136-145); TOTAL 25(OH) VITAMIN D 37.8 NG/ML (20.0-100.0); TRIGLYCERIDES LEVEL 75 MG/DL (<150)
[2025-07-13 12:02] LABS: FREE T4 1.09 NG/DL (0.89-1.76)
== END ==
LOC: M PLALAB 08:59
PROVIDERS: ATTEND Student in an Organized Health Care Education/Training Program
DX: Z13.29 Encounter for screening for other suspected endocrine disorder (principal); Z86.39 Personal history of other endocrine, nutritional and metabolic disease; E11.65 Type 2 diabetes mellitus with hyperglycemia

== ENCOUNTER → 2025-10-08 | Outpatient (REF) | payer OTHER | LOC: M SFHCPLAZ 16:42 | PROVIDERS: ATTEND Family Medicine | DX: E11.9 Type 2 diabetes mellitus without complications (principal); Z53.9 Procedure and treatment not carried out, unspecified reason ==